=== PATIENT | male | born 1955 | race Caucasian/White ===

== ENCOUNTER 2024-02-22 01:29 | Emergency (ER) | payer MEDICARE ==
[~2024-02-22] VITALS: Ht 182.9 cm; Wt 76.4 kg
[2024-02-22 01:34] VITALS: BP 174/104; TEMP 98
[2024-02-22 01:47] LABS: COLLECTION METHOD CATHETER
[2024-02-22 02:02] LABS: PH 6.5 (5.0-8.5); URINE APPEARANCE CLEAR (CLEAR/HAZY); URINE BLOOD 2+ (NEGATIVE); URINE COLOR YELLOW (YELLOW); URINE GLUCOSE NEGATIVE (NEGATIVE); URINE KETONE NEGATIVE (NEGATIVE); URINE NITRATE NEGATIVE (NEGATIVE); URINE PROTEIN(semi-quant) NEGATIVE (NEGATIVE); URINE UROBILINOGEN 0.2 E.U/dL (0.2-1.0)
[2024-02-22 02:48] VITALS: PULSE 78
== END 2024-02-22 02:48 | disposition home or self-care (01) ==
LOC: COL.ER 01:29
PROVIDERS: Physician Assistant
DX: R33.9 Retention of urine, unspecified (principal)